=== PATIENT | female | born 2000 | race Caucasian/White ===

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

== ENCOUNTER 2022-10-28 22:51 | Emergency (ER) | payer MEDICAID ==
[~2022-10-28] VITALS: Ht 149.9 cm; Wt 69.8 kg
[2022-10-29] MEDS ORDERED: IBUPROFEN 600MG TABLET PO ONE (02:15)
[2022-10-29] MEDS: LIDOCAINE 5% PATCH TOP SCH ×2 (02:23→02:30)
[2022-10-29 02:30] VITALS: BP 135/79
== END 2022-10-29 03:12 | disposition left against medical advice (07) ==
LOC: ER 22:51
DX: R07.89 Other chest pain (principal); Y08.89XA Assault by other specified means, initial encounter; Y93.89 Activity, other specified; Y92.89 Other specified places as the place of occurrence of the external cause; Y99.8 Other external cause status
CPT/HCPCS: 71045; 93005; 99283

== ENCOUNTER 2023-08-04 12:27 | Emergency (ER) | payer MEDICAID ==
[~2023-08-04] VITALS: Ht 172.7 cm; Wt 65.0 kg
[2023-08-04 12:41] VITALS: O2SAT 99
[2023-08-04 14:33] LABS: INR 0.9; PROTHROMBIN TIME 10.2 sec (9.6-11.0)
[2023-08-04 14:44] LABS: BASOPHILS % 0.6 % (0.0-2.0); EOSINOPHILS % 1.2 % (0.0-5.0); HEMATOCRIT. 44.6 % (36.0-48.0); HEMOGLOBIN. 15.1 g/dL (12.0-16.0); LYMPHOCYTES % 23.8 % (20.0-50.0); MEAN CORPUSCULAR HEMOGLOBIN 31.2 pg (28.0-32.0); MEAN CORPUSCULAR HGB CONC 33.8 g/dL (31.0-37.0); MEAN CORPUSCULAR VOLUME 92.1 fL (81.0-99.0); MEAN PLATELET VOLUME 10.1 fl (7.4-10.4); MONOCYTES % 5.9 % (2.0-8.0); NEUTROPHILS % 68.5 % (40.0-76.0); PLATELET 288 x1000/uL (130-400); RED BLOOD CELL COUNT 4.84 mill/uL (4.2-5.4); WHITE BLOOD COUNT 10.1 x1000/uL (4.5-11.0)
[2023-08-04 14:48] LABS: HCG SCREEN NEGATIVE
[2023-08-04 14:50] LABS: ALANINE AMINOTRANSFERASE 40 IU/L (10-49); ALBUMIN 4.7 g/dL (3.2-4.8); ASPARTATE AMINOTRANSFERASE 32 IU/L (<34); BILIRUBIN TOTAL 0.5 mg/dL (0.1-1.0); CARBON DIOXIDE 28 mEq/L (21-32); CHLORIDE 104 mEq/L (98-107); CREATININE 0.5 mg/dL (0.6-1.0); GLUCOSE 83 mg/dL (70-105); POTASSIUM 4.4 mEq/L (3.5-5.1); PROTEIN TOTAL 7.6 g/dL (6.0-8.3); SODIUM 140 mEq/L (136-145)
[2023-08-04 14:53] LABS: UREA NITROGEN BLOOD < 5 mg/dL (9-23)
[2023-08-04 15:40] LABS: CLARITY URINE CLEAR (CLEAR)
[2023-08-04 15:49] LABS: COLOR URINE DARK YELLOW (YELLOW); GLUCOSE URINE NEGATIVE (NEGATIVE); KETONES URINE TRACE (NEGATIVE); OCCULT BLOOD URINE TRACE (NEGATIVE); PROTEIN URINE NEGATIVE (NEGATIVE); SPECIFIC GRAVITY URINE 1.027 (1.005-1.030)
[2023-08-04 15:50] LABS: LEUKOCYTE ESTERASE URINE NEGATIVE (NEGATIVE); NITRITE URINE NEGATIVE (NEGATIVE)
[2023-08-04 16:08] LABS: SQUAMOUS EPITHELIAL CELL URINE 1+ /lpf (RARE/1+); YEAST URINE NONE SEEN
[2023-08-04 16:09] LABS: BACTERIA URINE 1+; RBC URINE 0-2 /hpf (0-2); WBC URINE 0-2 /hpf (0-2)
[2023-08-04] MEDS ORDERED: ONDANSETRON HCL 4MG TABLET PO ONE (19:45)
[2023-08-04 22:21] VITALS: BP 120/83; PULSE 84; RESP 18; TEMP 97.8
[2023-08-04] MEDS ORDERED: SODIUM CHLORIDE 0.9% 1,000 ML IV ONE (22:30)
[2023-08-04] MEDS ORDERED: KETOROLAC 30MG/ML VIAL IV ONE (22:30)
[2023-08-05] MEDS ORDERED: FAMO-135 MT (00:59)
[2023-08-05] MEDS ORDERED: NAPR-1129 MT (01:01)
== END 2023-08-05 02:20 | disposition home or self-care (01) ==
LOC: ER 12:27
DX: R10.13 Epigastric pain (principal); R10.11 Right upper quadrant pain
CPT/HCPCS: 80053; 81003; 84703; 83690; 85025; 85610; 36415; 74176; 76705; 96361; 96374; 99285; J1885; J7030; Z7610

== ENCOUNTER 2025-02-27 00:42 | Emergency (ER) | payer MEDICAID, OTHER ==
[~2025-02-27] VITALS: Ht 149.9 cm; Wt 62.0 kg
[~2025-02-27 00:42] MED LIST: FAMO-135 MT; NAPR-1129 MT
[2025-02-27 01:01] VITALS: O2SAT 100
[2025-02-27 01:10] VITALS: BP 138/83; PULSE 90; RESP 18; TEMP 36.9; O2SAT 99
[2025-02-27] MEDS: TETANUS, DIPHTHERIA, PERTUSSIS VAC/PF 0.5ML (>10YR OLD) IM ONE (04:11)
[2025-02-27 04:12] VITALS: TEMP 98.5
[2025-02-27] MEDS: ACETAMINOPHEN 325MG TABLET PO ONE (04:12)
[2025-02-27] MEDS ORDERED: AMOX1TAB16 MT (04:19)
== END 2025-02-27 04:39 | disposition home or self-care (01) ==
LOC: ER 00:54
DX: S60.512A Abrasion of left hand, initial encounter (principal); Z79.899 Other long term (current) drug therapy; W55.03XA Scratched by cat, initial encounter; Y93.89 Activity, other specified; Y92.89 Other specified places as the place of occurrence of the external cause; Y99.8 Other external cause status
CPT/HCPCS: 90471; 90715; 99283